=== PATIENT | female | born 1960 | race Caucasian/White ===

== ENCOUNTER → 2017-02-10 | Outpatient (CLI) | payer MEDICAID ==
[~2017-02-10] MED LIST: ATEN100T PO; CLONIDINE; LISI30TA36 PO; MODA100T29
[2017-02-10 11:13] LABS: Basophils # (auto) 0 uL; Basophils % (auto) 0.5 % (0.0-2.0); CONDITION Y; Eosinophils # (auto) 0.2 uL; Eosinophils % (auto) 2.5 % (0.0-7.0); Hematocrit 42.5 % (36.0-46.0); Hemoglobin 14.2 g/dL (12.2-16.2); Lymphocytes # (auto) 2.7 uL; Lymphocytes % (auto) 38.8 % (10.0-50.0); Mean Corpuscular Hemoglobin 30.4 pg (28.0-32.0); Mean Corpuscular Hgb Conc. 33.5 g/dL (32.0-36.0); Mean Corpuscular Volume 90.7 fL (80.0-100.0); Mean Platelet Volume 8.4 fL (7.4-10.4); Monocytes # (auto) 0.6 uL; Monocytes % (auto) 8.3 % (0.0-12.0); Neutrophils # (auto) 3.5 uL; Neutrophils % (auto) 49.9 % (37.0-80.0); Platelet Count (auto) 298 10^3/uL (140-450); Red Cell Distribution Width 15.5 % (11.6-16.0)
[2017-02-10 11:43] LABS: Albumin 3.5 g/dL (3.4-5.0); BUN/Creatinine Ratio 30.1; Bilirubin, Total 0.3 mg/dL (0.2-1.0); Calcium 9.1 mg/dL (8.5-10.1); Potassium 4.5 mmol/L (3.5-5.1); Total Protein 7.3 g/dL (6.4-8.2); Uric Acid 6.3 mg/dL (2.6-6.0)
== END | disposition home or self-care (01) ==
LOC: LAB 10:59
DX: M10.00 Idiopathic gout, unspecified site (principal); I10 Essential (primary) hypertension; M06.9 Rheumatoid arthritis, unspecified; D64.9 Anemia, unspecified; M25.50 Pain in unspecified joint; Z79.899 Other long term (current) drug therapy
CPT/HCPCS: 36415; 80053; 84550; 85025; 85652; 86141

== ENCOUNTER → 2017-05-01 | Outpatient (CLI) | payer MEDICAID | END | disposition home or self-care (01) | LOC: Rad HDHVI 14:04 | PROVIDERS: ATTEND Internal Medicine Cardiovascular Disease | DX: I50.22 Chronic systolic (congestive) heart failure (principal); I65.23 Occlusion and stenosis of bilateral carotid arteries; I05.0 Rheumatic mitral stenosis; I06.0 Rheumatic aortic stenosis | CPT/HCPCS: 93306 ==

== ENCOUNTER → 2017-07-03 | Outpatient (CLI) | payer MEDICAID ==
[2017-07-03 12:53] LABS: Basophils # (auto) 0 uL; Basophils % (auto) 0.4 % (0.0-2.0); Eosinophils # (auto) 0.2 uL; Eosinophils % (auto) 2.7 % (0.0-7.0); Hematocrit 40.9 % (36.0-46.0); Hemoglobin 13.8 g/dL (12.2-16.2); Lymphocytes # (auto) 2.6 uL; Lymphocytes % (auto) 30.9 % (10.0-50.0); Mean Corpuscular Hemoglobin 30.9 pg (28.0-32.0); Mean Corpuscular Hgb Conc. 33.7 g/dL (32.0-36.0); Mean Corpuscular Volume 91.8 fL (80.0-100.0); Monocytes % (auto) 12.3 % (0.0-12.0); Neutrophils # (auto) 4.5 uL; Neutrophils % (auto) 53.7 % (37.0-80.0); Platelet Count (auto) 286 10^3/uL (140-450); Red Cell Distribution Width 15.5 % (11.8-14.3); White Blood Cell 8.5 10^3/uL (4.4-10.8)
[2017-07-03 13:13] LABS: Albumin 3.7 g/dL (3.4-5.0); BUN/Creatinine Ratio 27.7; Bilirubin, Total 0.5 mg/dL (0.2-1.0); Calcium 8.9 mg/dL (8.5-10.1); Potassium 4.1 mmol/L (3.5-5.1); Total Protein 7.2 g/dL (6.4-8.2); Uric Acid 5.1 mg/dL (2.6-6.0)
== END | disposition home or self-care (01) ==
LOC: LAB 11:48
DX: I10 Essential (primary) hypertension (principal); M06.9 Rheumatoid arthritis, unspecified; D64.9 Anemia, unspecified; M10.00 Idiopathic gout, unspecified site; I70.0 Atherosclerosis of aorta; E78.00 Pure hypercholesterolemia, unspecified; Z79.899 Other long term (current) drug therapy
CPT/HCPCS: 36415; 80053; 84550; 85025; 85652; 86141

== ENCOUNTER 2018-02-12 17:13 | Emergency (ER) | payer MEDICAID ==
[~2018-02-12] VITALS: Ht 170.2 cm; Wt 99.8 kg
[2018-02-12 17:29] VITALS: BP 122/76
[2018-02-12 18:03] LABS: Basophils # (auto) 0.1 uL; Basophils % (auto) 0.6 % (0.0-2.0); Eosinophils # (auto) 0.1 uL; Eosinophils % (auto) 0.6 % (0.0-7.0); Hematocrit 41.1 % (36.0-46.0); Hemoglobin 13.7 g/dL (12.2-16.2); Lymphocytes # (auto) 1.9 uL; Lymphocytes % (auto) 14.4 % (10.0-50.0); Mean Corpuscular Hemoglobin 30.9 pg (28.0-32.0); Mean Corpuscular Hgb Conc. 33.3 g/dL (32.0-36.0); Mean Corpuscular Volume 92.8 fL (80.0-100.0); Monocytes # (auto) 0.8 uL; Neutrophils # (auto) 10.3 uL; Neutrophils % (auto) 78.4 % (37.0-80.0); Platelet Count (auto) 226 10^3/uL (140-450); Red Blood Cells 4.43 10^6/uL (4.0-5.20); Red Cell Distribution Width 14.6 % (11.8-14.3); White Blood Cell 13.1 10^3/uL (4.4-10.8)
[2018-02-12 18:28] LABS: Albumin 3.1 g/dL (3.4-5.0); BUN/Creatinine Ratio 13.1; Bilirubin, Total 1.6 mg/dL (0.2-1.0); Calcium 8.7 mg/dL (8.5-10.1); Potassium 3.4 mmol/L (3.5-5.1)
== END 2018-02-12 20:30 | disposition left against medical advice (07) ==
LOC: ER 17:13
DX: R21 Rash and other nonspecific skin eruption (principal); Z53.21 Procedure and treatment not carried out due to patient leaving prior to being seen by health care provider
CPT/HCPCS: 36415; 80053; 85025; 87040

== ENCOUNTER → 2018-02-16 | Outpatient (CLI) | payer MEDICAID ==
[~2018-02-16] MED LIST changes: +KETOROLAC TROMETH 60MG/2ML VIAL IM ONE; +ONDANSETRON HCL 4 MG/2 ML VIAL IV ONE; +ONDANSETRON HCL 4 MG/2 ML VIAL ONE; +VANCOMYCIN 1GM/250ML 250 ML IV ONE; +cefTRIAXone 1GM/10ml IVPUSH 10 ML IV ONE
[2018-02-16 14:10] VITALS: BP 100/70
== END | disposition home or self-care (01) ==
LOC: CHF HDHVI 12:38
PROVIDERS: ATTEND Internal Medicine Cardiovascular Disease
DX: M25.422 Effusion, left elbow (principal); M79.622 Pain in left upper arm; R11.2 Nausea with vomiting, unspecified; R60.9 Edema, unspecified; I10 Essential (primary) hypertension
CPT/HCPCS: 96365; 96372; 96375; G0463; J0696; J1885; J2405; J3370; 96367; 96374

== ENCOUNTER → 2018-02-21 | Outpatient (CLI) | payer MEDICAID ==
[~2018-02-21] MED LIST changes: -KETOROLAC TROMETH 60MG/2ML VIAL IM ONE; +ONDANSETRON HCL 4 MG/2 ML VIAL IM ONE; -ONDANSETRON HCL 4 MG/2 ML VIAL IV ONE; +VANCOMYCIN 1GM/250ML 250 ML IV SCH; +cefTRIAXone 1GM/10ml IVPUSH 10 ML IV SCH
[2018-02-21 11:12] VITALS: BP 139/85
[2018-02-21 12:31] LABS: Basophils # (auto) 0 uL; Basophils % (auto) 0.3 % (0.0-2.0); Eosinophils # (auto) 0.1 uL; Eosinophils % (auto) 1.9 % (0.0-7.0); Hemoglobin 13.8 g/dL (12.2-16.2); Lymphocytes # (auto) 2.3 uL; Lymphocytes % (auto) 37.8 % (10.0-50.0); Mean Corpuscular Hemoglobin 31.8 pg (28.0-32.0); Mean Corpuscular Hgb Conc. 34.4 g/dL (32.0-36.0); Mean Corpuscular Volume 92.3 fL (80.0-100.0); Monocytes # (auto) 0.5 uL; Monocytes % (auto) 8.5 % (0.0-12.0); Neutrophils # (auto) 3.2 uL; Neutrophils % (auto) 51.5 % (37.0-80.0); Nucleated Red Blood Cells % 0.2 %; Platelet Count (auto) 307 10^3/uL (140-450); Red Blood Cells 4.33 10^6/uL (4.0-5.20); Red Cell Distribution Width 13.7 % (11.8-14.3); White Blood Cell 6.2 10^3/uL (4.4-10.8)
[2018-02-21 12:44] LABS: BUN/Creatinine Ratio 12.9; Calcium 8.6 mg/dL (8.5-10.1); Magnesium 2.5 mg/dL (1.6-2.6); Potassium 3.3 mmol/L (3.5-5.1)
== END | disposition home or self-care (01) ==
LOC: CHF HDHVI 09:16
PROVIDERS: ATTEND Internal Medicine Cardiovascular Disease
DX: L02.414 Cutaneous abscess of left upper limb (principal); M25.422 Effusion, left elbow; E83.40 Disorders of magnesium metabolism, unspecified; D64.9 Anemia, unspecified; I10 Essential (primary) hypertension
CPT/HCPCS: 36415; 80048; 83735; 85025; 96365; 96375; G0463; J0696; J2405; J3370

== ENCOUNTER → 2018-02-23 | Outpatient (CLI) | payer MEDICAID ==
[~2018-02-23] MED LIST changes: -ONDANSETRON HCL 4 MG/2 ML VIAL IM ONE; +ONDANSETRON HCL 4 MG/2 ML VIAL IV ONE; -VANCOMYCIN 1GM/250ML 250 ML IV SCH; -cefTRIAXone 1GM/10ml IVPUSH 10 ML IV SCH
[2018-02-23 12:05] VITALS: BP 100/69
[2018-02-23 13:30] VITALS: BP 91/56
== END | disposition home or self-care (01) ==
LOC: CHF HDHVI 11:12
PROVIDERS: ATTEND Internal Medicine Cardiovascular Disease
DX: L02.414 Cutaneous abscess of left upper limb (principal); M25.422 Effusion, left elbow; I10 Essential (primary) hypertension
CPT/HCPCS: 96365; 96375; G0463; J0696; J2405; J3370

== ENCOUNTER → 2018-02-26 | Outpatient (CLI) | payer MEDICAID ==
[~2018-02-26] VITALS: Ht 30.5 cm; Wt 0.5 kg
[2018-02-26 13:30] VITALS: BP 116/78
[2018-02-26 15:30] VITALS: BP 107/78
== END | disposition home or self-care (01) ==
LOC: CHF HDHVI 13:54
PROVIDERS: ATTEND Internal Medicine Cardiovascular Disease
DX: L02.414 Cutaneous abscess of left upper limb (principal); M25.422 Effusion, left elbow; I10 Essential (primary) hypertension
CPT/HCPCS: 96365; 96375; G0463; J0696; J2405; J3370

== ENCOUNTER → 2018-05-07 | Outpatient (CLI) | payer MEDICAID ==
[~2018-05-07] MED LIST changes: +CYANOCOBALAMIN (B-12) 1000 MCG/1 ML VIAL IM ONE; +CYANOCOBALAMIN (B-12) 1000 MCG/1 ML VIAL ONE; +KETOROLAC TROMETH 60MG/2ML VIAL IM ONE; -ONDANSETRON HCL 4 MG/2 ML VIAL IV ONE; -ONDANSETRON HCL 4 MG/2 ML VIAL ONE; -cefTRIAXone 1GM/10ml IVPUSH 10 ML IV ONE
[2018-05-07 16:00] VITALS: BP 159/96
[2018-05-07 18:09] VITALS: BP 153/89
== END | disposition home or self-care (01) ==
LOC: CHF HDHVI 14:11
PROVIDERS: ATTEND Internal Medicine Cardiovascular Disease
DX: L02.01 Cutaneous abscess of face (principal); I25.10 Atherosclerotic heart disease of native coronary artery without angina pectoris; D64.9 Anemia, unspecified; I10 Essential (primary) hypertension; E83.40 Disorders of magnesium metabolism, unspecified; R60.9 Edema, unspecified
CPT/HCPCS: 96365; 96372; G0463; J1885; J3370; J3420

== ENCOUNTER → 2018-05-14 | Outpatient (CLI) | payer MEDICAID ==
[~2018-05-14] MED LIST changes: -CYANOCOBALAMIN (B-12) 1000 MCG/1 ML VIAL IM ONE; -CYANOCOBALAMIN (B-12) 1000 MCG/1 ML VIAL ONE; -KETOROLAC TROMETH 60MG/2ML VIAL IM ONE; +MVI in SODIUM CHLORIDE 0.9% 1,010 ML ONE; +MVI in SODIUM CHLORIDE 0.9% 500 ML IVB ONE; -VANCOMYCIN 1GM/250ML 250 ML IV ONE
[2018-05-14 11:15] LABS: Basophils # (auto) 0 uL; Basophils % (auto) 0.2 % (0.0-2.0); Eosinophils # (auto) 0.1 uL; Eosinophils % (auto) 1.4 % (0.0-7.0); Hemoglobin 15.3 g/dL (12.2-16.2); Lymphocytes # (auto) 2.3 uL; Lymphocytes % (auto) 30.4 % (10.0-50.0); Mean Corpuscular Hemoglobin 30.1 pg (28.0-32.0); Mean Corpuscular Hgb Conc. 32.5 g/dL (32.0-36.0); Mean Corpuscular Volume 92.7 fL (80.0-100.0); Monocytes # (auto) 0.5 uL; Monocytes % (auto) 6.8 % (0.0-12.0); Neutrophils # (auto) 4.7 uL; Neutrophils % (auto) 61.2 % (37.0-80.0); Platelet Count (auto) 311 10^3/uL (140-450); Red Blood Cells 5.07 10^6/uL (4.0-5.20); Red Cell Distribution Width 14.8 % (11.8-14.3); White Blood Cell 7.7 10^3/uL (4.4-10.8)
[2018-05-14 11:29] LABS: Albumin 3.3 g/dL (3.4-5.0); BUN/Creatinine Ratio 16.1; Calcium 9.2 mg/dL (8.5-10.1); Magnesium 2.5 mg/dL (1.6-2.6); Potassium 3.9 mmol/L (3.5-5.1)
[2018-05-14 11:31] LABS: Bilirubin, Total 0.5 mg/dL (0.2-1.0); Total Protein 7.2 g/dL (6.4-8.2)
[2018-05-14 13:00] VITALS: BP 133/80
== END | disposition home or self-care (01) ==
LOC: CHF HDHVI 10:20
PROVIDERS: ATTEND Internal Medicine Cardiovascular Disease
DX: I11.0 Hypertensive heart disease with heart failure (principal); I50.23 Acute on chronic systolic (congestive) heart failure; D64.9 Anemia, unspecified; E83.40 Disorders of magnesium metabolism, unspecified; I25.10 Atherosclerotic heart disease of native coronary artery without angina pectoris; L02.01 Cutaneous abscess of face; R60.9 Edema, unspecified
CPT/HCPCS: 36415; 80053; 83735; 83880; 85025; 96365; 96366; G0463; J3411; J3475

== ENCOUNTER → 2018-05-18 | Outpatient (CLI) | payer MEDICAID ==
[~2018-05-18] MED LIST changes: +IOHEXOL 350 MG/ML 100ML IJ ONE; -MVI in SODIUM CHLORIDE 0.9% 1,010 ML ONE; -MVI in SODIUM CHLORIDE 0.9% 500 ML IVB ONE
[2018-05-18 09:22] VITALS: BP 128/85
[2018-05-18 10:03] VITALS: BP 110/76
== END | disposition home or self-care (01) ==
LOC: Rad HDHVI 09:15
PROVIDERS: ATTEND Internal Medicine Cardiovascular Disease
DX: I70.0 Atherosclerosis of aorta (principal); I10 Essential (primary) hypertension
CPT/HCPCS: 71275; 82565; 93306; G0463; Q9967

== ENCOUNTER → 2018-07-13 | Outpatient (CLI) | payer MEDICAID ==
[~2018-07-13] MED LIST changes: +ALPR0.5T PO; -ATEN100T PO; +CLON0.2T PO; -CLONIDINE; +CLONIDINE PO; +DULO60CA PO; +ESCI20TA PO; +HYDR-4683 PO; -IOHEXOL 350 MG/ML 100ML IJ ONE; -LISI30TA36 PO; +METO-159 PO; -MODA100T29; +MODA200T50 PO; +VANCOMYCIN 1GM/250ML 250 ML IV ONE; +cefTRIAXone 1GM/50ML D5W 50 ML IV ONE
--- NOTE | 2018-07-13 12:30 | NUR ---
[facility]F PT TO [facility] FOR MD MAYEN ORDERED 1 GM ROCEPHIN IV AND VANCOMYCIN 1GM IV FOR ABSCESS TO R BUTTOCKS POST I AND D.
--- NOTE | 2018-07-13 12:45 | NUR ---
CHF IV insertion IV access obtained, via clean sterile technique by inserting 22G gauge catheter at after attempt(s). IV secured properly. No trauma to site. Patient tolerated procedure well. ROCEPHIN 1 GM IV OVER HALF HR.
--- NOTE | 2018-07-13 13:15 | NUR ---
CHF ROCEPHIN COMPLETE. IV VANCOMYCIN 1 GM COMPLETE.
[2018-07-13 14:20] VITALS: BP 119/83
--- NOTE | 2018-07-13 14:20 | NUR ---
CHF IV VANCOMYCIN COMPLETE. IV removal IV DC'd with sterile technique, catheter fully intact. Pressure dressing applied to site. Patient tolerated procedure well. Discharged with aftercare instructions per MD. FOLLOW UP WITH DR. MAYEN Monday07/16/18 NOTE:
== END | disposition home or self-care (01) ==
LOC: CHF HDHVI 12:31
PROVIDERS: ATTEND Internal Medicine Cardiovascular Disease
DX: L02.31 Cutaneous abscess of buttock (principal); J45.909 Unspecified asthma, uncomplicated; I25.10 Atherosclerotic heart disease of native coronary artery without angina pectoris; E78.00 Pure hypercholesterolemia, unspecified; M06.9 Rheumatoid arthritis, unspecified; E78.5 Hyperlipidemia, unspecified; M19.90 Unspecified osteoarthritis, unspecified site; E03.9 Hypothyroidism, unspecified; E66.9 Obesity, unspecified; Z68.37 Body mass index [BMI] 37.0-37.9, adult; Z79.899 Other long term (current) drug therapy
CPT/HCPCS: 96365; 96367; G0463; J0696; J3370

== ENCOUNTER → 2018-07-18 | Outpatient (CLI) | payer MEDICAID ==
[~2018-07-18] MED LIST changes: -VANCOMYCIN 1GM/250ML 250 ML IV ONE; -cefTRIAXone 1GM/50ML D5W 50 ML IV ONE
[2018-07-18 10:55] VITALS: BP 128/84
--- NOTE | 2018-07-18 10:55 | NUR ---
CHF PT TO [facility]F CLINIC FOR WD CARE POST I AND D ON 07/13/18.
[2018-07-18 11:25] VITALS: BP 125/87
--- NOTE | 2018-07-18 11:25 | NUR ---
CHF Wound Care Wound care provided per MD order. Patient tolerated well and verbalized dressing care instructions. Follow up in clinic as directed. See e-MAR for medications given during this visit. Discharge Instructions See e-MAR for any mediations given with this visit. Patient education given on disease process. Patient verbalized understanding. Previous labs reviewed. Patient discharged in stable condition with after care instructions and follow up appointment.
== END | disposition home or self-care (01) ==
LOC: CHF HDHVI 11:01
PROVIDERS: ATTEND Internal Medicine Cardiovascular Disease
DX: J45.909 Unspecified asthma, uncomplicated (principal); I10 Essential (primary) hypertension; R07.9 Chest pain, unspecified
CPT/HCPCS: G0463

== ENCOUNTER → 2019-06-28 | Outpatient (CLI) | payer MEDICAID ==
[~2019-06-28] VITALS: Ht 172.7 cm; Wt 97.5 kg
[~2019-06-28] MED LIST changes: +D5W 5% IV SCH; +DIPYRIDAMOLE (5MG/ML) 10 ML VIAL IV ONE; +DIPYRIDAMOLE IV SCH; -HYDR-4683 PO; +HYDR-4833 PO; +KETOROLAC TROMETH 30 MG/ML 1ML VIAL IV ONE; +KETOROLAC TROMETH 60MG/2ML VIAL ONE
== END | disposition home or self-care (01) ==
LOC: Rad HDHVI 08:07
PROVIDERS: ATTEND Internal Medicine Cardiovascular Disease
DX: J44.9 Chronic obstructive pulmonary disease, unspecified (principal); I25.10 Atherosclerotic heart disease of native coronary artery without angina pectoris; R06.02 Shortness of breath; I10 Essential (primary) hypertension
CPT/HCPCS: 78452; 93005; 93306; 96374; 96375; A9500; J1245; J1885; J7060

== ENCOUNTER → 2019-08-02 | Outpatient (CLI) | payer MEDICAID ==
[~2019-08-02] MED LIST changes: -D5W 5% IV SCH; -DIPYRIDAMOLE (5MG/ML) 10 ML VIAL IV ONE; -DIPYRIDAMOLE IV SCH; -KETOROLAC TROMETH 30 MG/ML 1ML VIAL IV ONE; -KETOROLAC TROMETH 60MG/2ML VIAL ONE
== END | disposition home or self-care (01) ==
LOC: Rad HDHVI 10:33
PROVIDERS: ATTEND Internal Medicine Cardiovascular Disease
DX: M51.36 Other intervertebral disc degeneration, lumbar region (principal); M54.5 Low back pain; I10 Essential (primary) hypertension; F32.9 Major depressive disorder, single episode, unspecified; R05 Cough; G47.33 Obstructive sleep apnea (adult) (pediatric); M06.9 Rheumatoid arthritis, unspecified; M79.7 Fibromyalgia; M47.896 Other spondylosis, lumbar region; M40.46 Postural lordosis, lumbar region; G95.89 Other specified diseases of spinal cord; M25.78 Osteophyte, vertebrae; M48.061 Spinal stenosis, lumbar region without neurogenic claudication; M85.88 Other specified disorders of bone density and structure, other site
CPT/HCPCS: 72131